=== PATIENT | female | born 1940 | race Caucasian/White ===

== ENCOUNTER 2021-11-21 20:40 | Emergency (ER) | payer MEDICARE ==
[2021-11-21 22:20] LABS: Absolute Neutrophil Ct (ANC) 4.79 (1.4-6.9); Basophil (Absolute #) 0.02 (0-0.4); Eosinophil % 2.3 % (0.00-5.0); Eosinophil (Absolute #) 0.21 (0-0.5); Hematocrit 42.2 % (35-47); Hemoglobin 13.7 gm/dl (12.0-16.0); Lymphocyte (Absolute #) 3.32 (1.0-4.6); Lymphocytes % 36.8 % (24.0-44.0); Mean Cell Volume 92.3 fl (78-100); Mean Corpuscular Hgb Concent. 32.5 g/dl (32-36); Mean Platelet Volume 10.9 fl (7.5-11.0); Monocyte (Absolute #) 0.69 (0.0-1.3); Monocytes % 7.6 % (0.0-12.0); Neutrophil % 53.1 % (36.0-66.0); Platelet Count 273 K/mm3 (150-450); Red Blood Count 4.57 M/mm3 (4.1-5.4); Red Cell Distribution Width 12.7 % (11.5-14.0)
--- NOTE | 2021-11-21 22:24 | ERPHSYRPT ---
- History of Present Illness Time Seen by Provider: 11/21/21 22:00 Historian: patient Exam Limitations: no limitations Patient Subjective Stated Complaint: rt sided pain (rib area) Triage Nursing Assessment: pt c/o rt sided pain (rib area). Pt states, "it's a sharp, knawing type pain when it occured but pain is so much better now. I guess I didn't give the Tylenol long enough to work". Pt has hx of hairline fx in her spine. Physician History: Patient 80-year-old female presents to our ED with complaints of acute onset right gnawing rib pain. Patient took Tylenol at home for her pain. Pain did not resolve so patient presented to our ED. Upon arrival to our ED her pain had resolved. Patient believes she does not get the Tylenol long of to work. Pain described as a gnawing sensation. No radiation. Pain localized to the mid aspect right rib. No nausea vomiting or diaphoresis. No extremity numbness ti ngling or weakness. No trauma no fever no rash. Patient currently asymptomatic. Patient voices no other complaints or concerns at this time. Activities at Onset: none Quality: other (Gnawing sensation) Location: other (Right lateral chest wall) Chest Pain Radiation: no radiation Severity of Pain-Max: moderate Severity of Pain-Current: mild Modifying Factors: Improves With: nothing Associated Symptoms: denies symptoms Prior Chest Pain/Cardiac Workup: no prior chest pain Nitro Today/Relief: no nitro taken today Aspirin Treatment Today: no aspirin today Allergies/Adverse Reactions: No Known Drug Allergies Allergy (Unverified 11/21/21 21:25) Home Medications: Fluoxetine HCl 10 mg [Prozac 10 mg] 10 mg PO HS 11/21/21 [History] Hx Tetanus, Diphtheria Vaccination/Date Given: Yes Hx Influenza Vaccination/Date Given: Yes Hx Pneumococcal Vaccination/Date Given: Yes Immunizations Up to Date: Yes Travel Risk - International Travel Have you traveled outside of the country in past 3 weeks: No - Coronavirus Screening Are you exhibiting any of the following symptoms?: No Close contact with a COVID-19 positive Pt in past 14-21 Days: No - Vaccine Status Have you recieved a Covid-19 vaccination: Yes Scallop Cutter Machine: Moderna - Vaccination Dates Date of 2cond Vaccination (if applicable): 11/03/2020 - Review of Systems Constitutional: No Symptoms, No Fever, No Chills Eyes: No Symptoms Ears, Nose, & Throat: No Symptoms Respiratory: No Symptoms, No Cough, No Dyspnea Cardiac: No Symptoms, No Chest Pain, No Edema, No Syncope Abdominal/Gastrointestinal: No Symptoms, No Abdominal Pain, No Nausea, No Vomiting, No Diarrhea Genitourinary Symptoms: No Symptoms, No Dysuria Musculoskeletal: No Symptoms, No Back Pain, No Neck Pain Skin: No Symptoms, No Rash Neurological: No Symptoms, No Dizziness, No Focal Weakness, No Sensory Changes Psychological: No Symptoms Endocrine: No Symptoms Hematologic/Lymphatic: No Symptoms Immunological/Allergic: No Symptoms All Other Systems: Reviewed and Negative - Past Medical History Pertinent Past Medical History: Yes Neurological History: Stroke ENT History: No Pertinent History Cardiac History: No Pertinent History Respiratory History: No Pertinent History Endocrine Medical History: No Pertinent History Musculoskeletal History: Arthritis, Fractures GI Medical History: Gallbladder Disease History: No Pertinent History Psycho-Social History: Depression Female Reproductive Disorders: No Pertinent History - Past Surgical History Past Surgical History: Yes Neuro Surgical History: No Pertinent History Cardiac: No Pertinent History Respiratory: No Pertinent History Gastrointestinal: Appendectomy, Cholecystectomy Genitourinary: No Pertinent History Musculoskeletal: No Pertinent History Female Surgical History: Hysterectomy, Dilation & Curettage - Social History Smoking Status: Current every day smoker How long have you smoked: 15 yrs Exposure to second hand smoke: Yes Drug Use: none Patient Lives Alone: Yes - Nursing Vital Signs Nursing Vital Signs: Initial Vital Signs Temperature 98.2 F 11/21/21 21:11 Pulse Rate 89 11/21/21 21:11 Respiratory Rate 20 11/21/21 21:11 Blood Pressure 149/109 11/21/21 21:11 O2 Sat by Pulse Oximetry 97 11/21/21 21:11 Pain Scale Pain Intensity [] 5 Pain Intensity 0 - Physical Exam General Appearance: no apparent distress, alert Eye Exam: PERRL/EOMI, eyes nml inspection Ears, Nose, Throat Exam: normal ENT inspection, TMs normal, pharynx normal, moist mucous membranes Neck Exam: normal inspection, non-tender, supple, full range of motion Respiratory Exam: normal breath sounds, lungs clear, airway intact, No respiratory distress Cardiovascular Exam: regular rate/rhythm, normal heart sounds, normal peripheral pulses, No murmur Gastrointestinal/Abdomen Exam: soft, No tenderness, No mass Back Exam: normal inspection, No CVA tenderness, No vertebral tenderness Extremity Exam: normal inspection, normal range of motion Neurologic Exam: alert, oriented x 3, cooperative, normal mood/affect, sensation nml, No motor deficits Skin Exam: normal color, warm, dry Lymphatic Exam: No adenopathy SpO2 Interpretation: normal SpO2: 96 O2 Delivery: Room Air - Course Nursing assessment & vital signs reviewed: Yes EKG Interpreted by Me: RATE (75), Sinus Rhythm, NORMAL AXIS, NORMAL INTERVALS - CT Exams Chest CT Interpretation: Tele-radiologist Report (No pulmonary embolism. Small proximal abdominal aortic troy aneurysm. Cholecystectomy old granulomatous disease. Pulmonary nodule. Multiple old vertebral body compression deformities.) Ordered Tests: Active Orders 24 hr Category Date Time Status Mill Controller STAT Care 11/21/21 22:12 Active EKG-ER Only STAT Care 11/21/21 22:11 Active IV Insertion STAT Care 11/21/21 22:11 Active Pulse Oximetry (ED) STAT Care 11/21/21 22:11 Active CHEST WITH CONTRAST [CT] Stat Exams 11/21/21 22:34 Taken CBC W DIFF Stat Lab 11/21/21 22:10 Completed CMP Stat Lab 11/21/21 22:10 Completed D-DIMER QUANTITATIVE Stat Lab 11/21/21 22:10 Completed NT PRO BNP Stat Lab 11/21/21 22:10 Completed TROPONIN Q3H Lab 11/21/21 22:10 Completed TROPONIN Q3H Lab 11/22/21 01:15 Ordered TROPONIN Q3H Lab 11/22/21 04:15 Ordered TROPONIN Q3H Lab 11/22/21 07:15 Ordered TROPONIN Q3H Lab 11/22/21 10:15 Ordered Lab/Rad Data: Laboratory Result Diagrams 11/21/21 22:10 11/21/21 22:10 Laboratory Results 11/21/21 11/21/21 11/21/21 Range/Units 22:10 22:10 22:10 WBC (4.0-10.5) K/mm3 RBC (4.1-5.4) M/mm3 Hgb (12.0-16.0) gm/dl Hct (35-47) % MCV (78-100) fl MCH (26-32) pg MCHC (32-36) g/dl RDW (11.5-14.0) % Plt Count (150-450) K/mm3 MPV (7.5-11.0) fl Gran % (36.0-66.0) % Eos # (Auto) (0-0.5) Absolute Lymphs (auto) (1.0-4.6) Absolute Monos (auto) (0.0-1.3) Lymphocytes % (24.0-44.0) % Monocytes % (0.0-12.0) % Eosinophils % (0.00-5.0) % Basophils % (0.0-0.4) % Absolute Granulocytes (1.4-6.9) Basophils # (0-0.4) D-Dimer 551 H* (215-500) ng/mL Sodium 132 L (137-145) mmol/L Potassium 4.4 (3.5-5.1) mmol/L Chloride 98 (98-107) mmol/L Carbon Dioxide 25 (22-30) mmol/L Anion Gap 13.2 (5-15) MEQ/L BUN 18 H (7-17) mg/dL Creatinine 0.71 (0.52-1.04) mg/dL Estimated GFR > 60.0 ML/MIN Glucose 106 (74-106) mg/dL Calcium 9.4 (8.4-10.2) mg/dL Total Bilirubin 0.70 (0.2-1.3) mg/dL AST 29 (14-36) U/L ALT 21 (0-35) U/L Alkaline Phosphatase 90 (38-126) U/L Troponin I < 0.012 (0.000-0.034) ng/mL NT-Pro-B Natriuret Pep 252 (0-1800) pg/mL Serum Total Protein 7.4 (6.3-8.2) g/dL Albumin 4.3 (3.5-5.0) g/dL 11/21/21 Range/Units 22:10 WBC 9.0 (4.0-10.5) K/mm3 RBC 4.57 (4.1-5.4) M/mm3 Hgb 13.7 (12.0-16.0) gm/dl Hct 42.2 (35-47) % MCV 92.3 (78-100) fl MCH 30.0 (26-32) pg MCHC 32.5 (32-36) g/dl RDW 12.7 (11.5-14.0) % Plt Count 273 (150-450) K/mm3 MPV 10.9 (7.5-11.0) fl Gran % 53.1 (36.0-66.0) % Eos # (Auto) 0.21 (0-0.5) Absolute Lymphs (auto) 3.32 (1.0-4.6) Absolute Monos (auto) 0.69 (0.0-1.3) Lymphocytes % 36.8 (24.0-44.0) % Monocytes % 7.6 (0.0-12.0) % Eosinophils % 2.3 (0.00-5.0) % Basophils % 0.2 (0.0-0.4) % Absolute Granulocytes 4.79 (1.4-6.9) Basophils # 0.02 (0-0.4) D-Dimer (215-500) ng/mL Sodium (137-145) mmol/L Potassium (3.5-5.1) mmol/L Chloride (98-107) mmol/L Carbon Dioxide (22-30) mmol/L Anion Gap (5-15) MEQ/L BUN (7-17) mg/dL Creatinine (0.52-1.04) mg/dL Estimated GFR ML/MIN Glucose (74-106) mg/dL Calcium (8.4-10.2) mg/dL Total Bilirubin (0.2-1.3) mg/dL AST (14-36) U/L ALT (0-35) U/L Alkaline Phosphatase (38-126) U/L Troponin I (0.000-0.034) ng/mL NT-Pro-B Natriuret Pep (0-1800) pg/mL Serum Total Protein (6.3-8.2) g/dL Albumin (3.5-5.0) g/dL - Progress Progress: improved Air Movement: good Progress Note: Patient reassessed. She remains asymptomatic. D-dimer positive. CTA chest reveals a "troy aneurysm" measuring 2.1 cm located at the proximal abdominal aorta. I discussed this with Dr. Balwinder Villalpando. He states that patient may be discharged. Patient to follow-up with Dr. Ney Villalpando tomorrow morning. Troponin negative x2. No indication for further work-up. 11/22/21 00:34 Portions of this note were created with voice recognition technology. There may be grammatical, spelling, punctuation or sound alike errors 11/22/21 00:35 Blood Culture(s) Obtained: No Antibiotics given: No Discussed with : Jennifer Counseled pt/family regarding: lab results, diagnosis, need for follow-up, rad results - Departure Departure Disposition: Home Clinical Impression: Troy aneurysm, Lung granuloma, Pulmonary nodule, Calcified hilar lymph node, Thoracic spine compression deformities Condition: Stable Critical Care Time: No Referrals: PARISH PEDROZA DO [Primary Care Provider] - Follow up/PCP as directed NEY VILLALPANDO MD [ACTIVE STAFF] - Follow up/PCP as directed Instructions: Pulmonary Nodule Additional Instructions: Please follow-up with Dr. Villalpando regarding the aortic aneurysm observed on your CAT scan. Call this morning 11/22/2021 for follow-up appointment. Discharge/Care Plan PETTY PHILLIPS was seen on 11/22/21 in the Emergency Room. The patient was counseled regarding Diagnosis,Lab results, Imaging studies, need for follow up and when to return to the Emergency Room. Prescriptions given: Discharge Note I have spoken with the patient and/or caregivers. I have explained the patient's condition, diagnosis and treatment plan based on the information available to me at this time. I have answered the patient's and/or caregiver's questions and addressed any concerns. The patient and/or caregivers have as good understanding of the patient's diagnosis, condition and treatment plan as can be expected at this point. The vital signs have been stable. The patient's condition is stable and appropriate for discharge from the emergency department. The patient will pursue further outpatient evaluation with the primary care physician or other designated or consulting physician as outlined in the discharge instructions. The patient and/or caregivers are agreeable to this plan of care and follow-up instructions have been explained in detail. The patient and/or caregivers have received these instruction. The patient/and or caregivers are aware that any significant change in condition or worsening of symptoms should prompt an immediate return to this or the closest emergency department or call 911.
[2021-11-21 22:39] LABS: ALBUMIN 4.3 g/dL (3.5-5.0); ALKALINE PHOSPHATASE 90 U/L (38-126); ANION GAP 13.2 MEQ/L (5-15); BLOOD UREA NITROGEN 18 mg/dL (7-17); CHLORIDE 98 mmol/L (98-107); Calcium 9.4 mg/dL (8.4-10.2); Carbon Dioxide 25 mmol/L (22-30); Creatinine 1 0.71 mg/dL (0.52-1.04); EST GLOMERULAR FILTRATION RATE > 60.0 ML/MIN; Glucose 106 mg/dL (74-106); NT PRO BNP 252 pg/mL (0-1800); Potassium 4.4 mmol/L (3.5-5.1); SGOT/AST 29 U/L (14-36); SGPT/ALT 21 U/L (0-35); SODIUM 132 mmol/L (137-145); Total Protein 7.4 g/dL (6.3-8.2)
[2021-11-22 02:25] VITALS: BP 172/96; PULSE 68; O2SAT 100
--- NOTE | 2021-11-22 08:55 | XRAY ---
Indication: Elevated d-dimer. Pulmonary embolus. Multiple contiguous axial images obtained through the chest using 80 cc Isovue 370 contrast and PE protocol. Comparison: None There is good opacification of the pulmonary arteries to includes the lobar and segmental branches. No pulmonary embolus. Heart is not enlarged. Aorta is normal in course and caliber with minimal scattered arteriosclerotic calcifications. Small distal paratracheal calcified node. No pathologic mediastinal/hilar lymphadenopathy. Small hiatal hernia. Lungs demonstrate minimal bilateral dependent atelectasis and tiny left lower lobe calcified granuloma. No suspicious pulmonary mass, infiltrate, consolidation, or effusion. Bony thorax demonstrates osteopenia, mild/moderate multilevel thoracolumbar degenerative spondylosis, and remote T3/T8/T9/T11/T12/L2 compression fractures. Limited upper abdomen demonstrates 2.3 cm infrarenal saccular aortic aneurysm and mild fatty liver. Impression: 1. Negative pulmonary embolus. No acute cardiopulmonary abnormalities. 2. Incidental small hiatal hernia, scattered arteriosclerotic disease with infrarenal aortic aneurysm, fatty liver, chronic bony findings, and old granulomatous disease. Comment: Preliminary interpretation made by [facility]. No critical discrepancy.
== END 2021-11-22 01:24 | disposition home or self-care (01) ==
LOC: ED 20:40
DX: I67.1 Cerebral aneurysm, nonruptured (principal); R91.1 Solitary pulmonary nodule; J84.10 Pulmonary fibrosis, unspecified; I89.8 Other specified noninfective disorders of lymphatic vessels and lymph nodes; M43.8X4 Other specified deforming dorsopathies, thoracic region; Z72.0 Tobacco use
CPT/HCPCS: 36000; 36415; 71260; 80053; 83880; 84484; 85025; 85379; 93005; 93041; 94760; 99284

== ENCOUNTER 2022-01-22 13:14 | Day surgery (SDC) | payer MEDICARE ==
[2022-01-22] MEDS ORDERED: LIDOCAINE HCL 2% 100 MG/5 ML IJ ONE (13:15)
[2022-01-22] MEDS ORDERED: Depo-Medrol 40 MG/ML IM ONE (13:15)
[2022-01-22] MEDS ORDERED: DIPRIVAN 200 MG/20 ML IV ONE (17:24)
[2022-01-22] MEDS ORDERED: Lactated Ringers 1,000 ML IV ONE (18:20)
--- NOTE | 2022-01-22 19:47 | XRAY ---
Indication: Bilateral L4-S1 MBB. Intraoperative fluoroscopy provided for 12 seconds. Single digital spot image submitted for interpretation demonstrates posterior needle tips projecting over the expected left and right L4-S1 nerve roots. Correlate with intraoperative findings/report.
--- NOTE | 2022-01-23 08:46 | XRAY ---
12 seconds fluoroscopy time in surgery for bilateral L4-S1 MBB.
== END 2022-01-22 17:50 | disposition home or self-care (01) ==
LOC: SDC-PAIN 13:14
PROVIDERS: ATTEND Psychiatry & Neurology Pain Medicine
DX: M47.816 Spondylosis without myelopathy or radiculopathy, lumbar region (principal); Z79.899 Other long term (current) drug therapy
CPT/HCPCS: 64493; 64494; 72020; 77002; J1030; J2704

== ENCOUNTER 2022-07-08 16:33 | Emergency (ER) | payer MEDICARE ==
--- NOTE | 2022-07-08 18:27 | ERPHSYRPT ---
<MILTON DIAZ - Last Filed: 07/08/22 18:45> - History of Present Illness Time Seen by Provider: 07/08/22 16:45 Historian: patient, other (This records were provided by Dr. Moreno) Patient Subjective Stated Complaint: Chest pain Triage Nursing Assessment: Patient brought back to ED per w/c and transferred to bed per self. Patient A+O X3. Patient's skin pink, warm and dry. Patient states she was seen today by Dr. Curtis and had an outpatient EKG and lab work done. Patient was on her way home and Dr. Curtis called her and stated the reading on EKG stated she was having a heart attack and to come back to ED. Patient currently denies pain or discomfort but states at times she has intermittent body aches and numbness to entire body. Patient denies N/V or diarrhea. Patient complains of increased weakness the past few days. Physician History: Patient is an 81-year-old white female who saw Dr. Moreno for shortness of breath for 2 weeks and some fever and coughing with pain today. While in the office she walked the renae and her O2 sat dropped into the 78% range. Dr. Moreno ordered a work-up as an outpatient and asked that she be evaluated in the emergency room because of the EKG having some abnormalities. Dr. Moreno's plan is to treat her with antibiotics for bronchitis provided that her EKG and troponins are not abnormal. 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 The spinal disease causes her a great deal of discomfort generally but especially in the chest. That problem is followed and treated in the pain clinic by Dr. Pearce and injections by Dr. Julian. Timing/Duration: week(s) (3) Activities at Onset: none Quality: cramping, throbbing Location: back Chest Pain Radiation: no radiation Severity of Pain-Max: moderate Severity of Pain-Current: moderate Associated Symptoms: cough, hurts to breathe Nitro Today/Relief: no nitro taken today Aspirin Treatment Today: no aspirin today Allergies/Adverse Reactions: No Known Drug Allergies Allergy (Verified 07/08/22 16:37) Home Medications: Omeprazole Magnesium [Prilosec Otc] 1 tab PO DAILY 07/08/22 [History] Hx Tetanus, Diphtheria Vaccination/Date Given: Yes Hx Influenza Vaccination/Date Given: Yes Hx Pneumococcal Vaccination/Date Given: Yes Immunizations Up to Date: Yes Travel Risk - International Travel Have you traveled outside of the country in past 3 weeks: No - Coronavirus Screening Are you exhibiting any of the following symptoms?: No Close contact with a COVID-19 positive Pt in past 14-21 Days: No - Vaccine Status Have you recieved a Covid-19 vaccination: Yes French Folder: Moderna - Vaccination Dates Date of 2cond Vaccination (if applicable): 11/03/2020 - Review of Systems Constitutional: No Fever, No Chills Eyes: No Symptoms Ears, Nose, & Throat: No Symptoms Respiratory: Cough, No Dyspnea Cardiac: Chest Pain, No Edema, No Syncope Abdominal/Gastrointestinal: No Abdominal Pain, No Nausea, No Vomiting, No Diarrhea Genitourinary Symptoms: No Dysuria Musculoskeletal: Back Pain, No Neck Pain Skin: No Rash Neurological: No Dizziness, No Focal Weakness, No Sensory Changes Psychological: No Symptoms Endocrine: No Symptoms All Other Systems: Reviewed and Negative - Past Medical History Pertinent Past Medical History: Yes Neurological History: Stroke ENT History: No Pertinent History Cardiac History: No Pertinent History Respiratory History: No Pertinent History Endocrine Medical History: No Pertinent History Musculoskeletal History: Arthritis, Fractures GI Medical History: Gallbladder Disease History: No Pertinent History Psycho-Social History: Depression Female Reproductive Disorders: No Pertinent History - Past Surgical History Past Surgical History: Yes Neuro Surgical History: No Pertinent History Cardiac: No Pertinent History Respiratory: No Pertinent History Gastrointestinal: Appendectomy, Cholecystectomy Genitourinary: No Pertinent History Musculoskeletal: No Pertinent History Female Surgical History: Hysterectomy, Dilation & Curettage - Social History Smoking Status: Former smoker How long have you smoked: 15 yrs Exposure to second hand smoke: Yes Drug Use: none Patient Lives Alone: Yes - Physical Exam General Appearance: mild distress Eye Exam: PERRL/EOMI, eyes nml inspection Ears, Nose, Throat Exam: normal ENT inspection, moist mucous membranes Neck Exam: normal inspection, non-tender, supple, full range of motion Respiratory Exam: normal breath sounds, lungs clear, No respiratory distress Cardiovascular Exam: regular rate/rhythm, normal heart sounds Gastrointestinal/Abdomen Exam: soft, No tenderness, No mass Back Exam: decreased range of motion, point tenderness (Movement of the patient to roll to side to side in the bed causes pain from the back.), No normal range of motion, No CVA tenderness, No vertebral tenderness Extremity Exam: normal inspection, normal range of motion Neurologic Exam: alert, oriented x 3, cooperative, normal mood/affect, sensation nml, No motor deficits Skin Exam: normal color, warm, dry SpO2 Interpretation: normal SpO2: 98 O2 Delivery: Room Air - Course Nursing assessment & vital signs reviewed: Yes EKG Interpreted by Me: RATE (84), Sinus Rhythm, Left [place] Deviation - Progress Progress: unchanged - Departure Departure Disposition: Home Clinical Impression: Bronchitis Condition: Stable Critical Care Time: No Referrals: PARIHS CURTIS, [Primary Care Provider] - Follow up/PCP as directed Additional Instructions: Discharge/Care Plan PETTY PHILLIPS was seen on 07/08/22 in the Emergency Room. The patient was counseled regarding Diagnosis,Lab results, Imaging studies, need for follow up and when to return to the Emergency Room. Prescriptions given: Discharge Note I have spoken with the patient and/or caregivers. I have explained the patient's condition, diagnosis and treatment plan based on the information available to me at this time. I have answered the patient's and/or caregiver's questions and addressed any concerns. The patient and/or caregivers have as good understanding of the patient's diagnosis, condition and treatment plan as can be expected at this point. The vital signs have been stable. The patient's condition is stable and appropriate for discharge from the emergency department. The patient will pursue further outpatient evaluation with the primary care physician or other designated or consulting physician as outlined in the discharge instructions. The patient and/or caregivers are agreeable to this plan of care and follow-up instructions have been explained in detail. The patient a nd/or caregivers have received these instruction. The patient/and or caregivers are aware that any significant change in condition or worsening of symptoms should prompt an immediate return to this or the closest emergency department or call 911. <JAKE ESCALANTE - Last Filed: 07/08/22 22:13> - Nursing Vital Signs Nursing Vital Signs: Initial Vital Signs Temperature 97.6 F 07/08/22 16:38 Pulse Rate 88 07/08/22 16:38 Respiratory Rate 18 07/08/22 16:38 Blood Pressure 168/97 07/08/22 16:38 O2 Sat by Pulse Oximetry 98 07/08/22 16:38 Pain Scale Pain Intensity 3 - CT Exams Chest CT Interpretation: Tele-radiologist Report (No change compared to 11/21/2021. Continue negative PE. No no acute findings) Ordered Tests: Active Orders 24 hr Category Date Time Status IV Insertion STAT Care 07/08/22 17:25 Active ABDOMEN AND PELVIS W CONTRAST [CT] Stat Exams 07/08/22 17:28 Taken CHEST WITH CONTRAST [CT] Stat Exams 07/08/22 17:27 Taken CMP Stat Lab 07/08/22 21:09 Completed D-DIMER QUANTITATIVE Stat Lab 07/08/22 16:45 Completed TROPONIN Q4H Lab 07/08/22 21:09 Completed TROPONIN Q4H Lab 07/09/22 00:30 Ordered TROPONIN Q4H Lab 07/09/22 04:30 Ordered Lab/Rad Data: Laboratory Result Diagrams 07/08/22 21:09 Laboratory Results 07/08/22 07/08/22 07/08/22 Range/Units 21:09 21:09 16:45 D-Dimer 0.69 H* (0.0-0.50) mg/L Sodium 137 (137-145) mmol/L Potassium 4.0 (3.5-5.1) mmol/L Chloride 102 (98-107) mmol/L Carbon Dioxide 27 (22-30) mmol/L Anion Gap 11.2 (5-15) MEQ/L BUN 18 H (7-17) mg/dL Creatinine 0.79 (0.52-1.04) mg/dL Estimated GFR > 60.0 ML/MIN Glucose 111 H (74-106) mg/dL Calcium 9.3 (8.4-10.2) mg/dL Total Bilirubin 0.70 (0.2-1.3) mg/dL AST 28 (14-36) U/L ALT 29 (0-35) U/L Alkaline Phosphatase 110 (38-126) U/L Troponin I < 0.012 (0.000-0.034) ng/mL Serum Total Protein 7.3 (6.3-8.2) g/dL Albumin 4.2 (3.5-5.0) g/dL - Progress Air Movement: good Progress Note: Patient endorsed Dr. Escalante at approximately [address] Escalante advised to follow-up on pending CAT scan chest. If negative patient may be discharged home. Dr. Moreno has already called in antibiotics for our patient. Troponin negative. D-dimer was positive however CTA chest was negative for PE. Patient agrees to follow-up with Dr. Moreno tomorrow as planned. Vital stable. Patient voices no other complaints or concerns at this time. Portions of this note were created with voice recognition technology. There may be grammatical, spelling, punctuation or sound alike errors 07/08/22 22:11 Blood Culture(s) Obtained: No Antibiotics given: No Counseled pt/family regarding: diagnosis, need for follow-up, rad results
[2022-07-08 20:53] VITALS: BP 93/74; PULSE 70; O2SAT 99
[2022-07-08 21:32] LABS: ALBUMIN 4.2 g/dL (3.5-5.0); ALKALINE PHOSPHATASE 110 U/L (38-126); ANION GAP 11.2 MEQ/L (5-15); BLOOD UREA NITROGEN 18 mg/dL (7-17); CHLORIDE 102 mmol/L (98-107); Calcium 9.3 mg/dL (8.4-10.2); Carbon Dioxide 27 mmol/L (22-30); Creatinine 1 0.79 mg/dL (0.52-1.04); EST GLOMERULAR FILTRATION RATE > 60.0 ML/MIN; Glucose 111 mg/dL (74-106); SGOT/AST 28 U/L (14-36); SGPT/ALT 29 U/L (0-35); SODIUM 137 mmol/L (137-145); Total Protein 7.3 g/dL (6.3-8.2)
--- NOTE | 2022-07-09 08:49 | XRAY ---
Indication: Short of breath and chest pain. Pulmonary embolus. Multiple contiguous images obtained through the chest using 100 cc Isovue 370 contrast and PE protocol. Comparison: November 21, 2021 Good opacification of the pulmonary arteries to include the lobar and segmental branches. No pulmonary embolus. Heart not enlarged. Aorta minimally arteriosclerotic without aneurysm/dissection. Stable right paratracheal calcified nodes. No pathologic mediastinal/hilar lymphadenopathy. Lungs inflated and clear. Bony thorax intact again with osteopenia, mild/moderate multilevel thoracolumbar degenerative spondylosis, and remote T3/T8/T9/T11/T12 compression fractures. New remote-appearing T4/T7 endplate fractures with approximately 25% height loss. CT abdomen/pelvis reported separately. Impression: 1. Continued negative pulmonary embolus. No new/acute cardiopulmonary abnormalities. 2. Chronic findings including arteriosclerotic disease and chronic bony findings.
--- NOTE | 2022-07-09 08:53 | XRAY ---
Indication: Abdomen pain and distention. Multiple contiguous images obtained through the abdomen and pelvis using 100 cc Isovue 370 contrast. Comparison: None CT chest reported separately. Noncontrasted stomach and bowel loops nonobstructed. Incidental 3.8 cm distal descending duodenal diverticulum and scattered colonic diverticulosis greatest in the sigmoid colon. Appendectomy, cholecystectomy, and hysterectomy reported. No free fluid/air. Remaining liver, pancreas, spleen, adrenal glands, kidneys, ureters, and bladder are unremarkable. Moderate scattered vascular calcifications. 2.5 cm infrarenal aortic aneurysm. No pathologic retroperitoneal lymphadenopathy. Osseous structures demonstrates osteopenia, mild dextroscoliosis centered at L2, mild/moderate multilevel thoracolumbar degenerative spondylosis, and remote multilevel thoracolumbar compression fractures, greatest T12. Impression: 1. 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 2. Remaining CT abdomen/pelvis without contrast exam is negative.
== END 2022-07-08 22:35 | disposition home or self-care (01) ==
LOC: ED 16:33
DX: J40 Bronchitis, not specified as acute or chronic (principal); R06.02 Shortness of breath; R05.1 Acute cough; R94.31 Abnormal electrocardiogram [ECG] [EKG]
CPT/HCPCS: 36000; 36415; 71260; 74177; 80053; 84484; 85379; 99284